=== PATIENT | female | born 1980 | race Caucasian/White ===

== ENCOUNTER 2020-06-21 00:40 | Emergency (ER) | payer OTHER | END 2020-06-21 02:44 | LOC: ED 00:40 | DX: Z02.89 Encounter for other administrative examinations (principal) ==

== ENCOUNTER 2020-06-21 00:40 | Emergency (ER) | payer OTHER, MEDICAID ==
[~2020-06-21] VITALS: Ht 167.6 cm; Wt 63.5 kg
[2020-06-21 00:47] VITALS: Ht 167.6 cm; Wt 63.5 kg
[2020-06-21 02:43] VITALS: BP 146/88
== END 2020-06-21 02:44 ==
LOC: ED 00:40
DX: M25.572 Pain in left ankle and joints of left foot (principal); M25.512 Pain in left shoulder; R07.89 Other chest pain; R22.42 Localized swelling, mass and lump, left lower limb; V43.62XA Car passenger injured in collision with other type car in traffic accident, initial encounter; Y93.89 Activity, other specified; Y92.411 Interstate highway as the place of occurrence of the external cause; Y99.9 Unspecified external cause status